=== PATIENT | female | born 2000 | race Caucasian/White ===

== ENCOUNTER 2022-11-06 10:03 | Outpatient (CLI) | payer MEDICAID, SELFPAY ==
[2022-11-06 15:01] LABS: Chlamydia DNA Amplified* NOT DETECTED (No Detected); GC DNA Amplified* NOT DETECTED (No Detected)
== END 2022-11-06 10:04 | disposition home or self-care (01) ==
LOC: NFLDUCREF 10:03
PROVIDERS: PCP Pediatrics; Visit Provider Family Medicine
DX: L29.0 Pruritus ani (principal); N89.8 Other specified noninflammatory disorders of vagina
CPT/HCPCS: 87491; 87591